=== PATIENT | female | born 2000 | race Caucasian/White ===

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

== ENCOUNTER 2023-07-26 07:09 | Emergency (ER) | payer OTHER, SELFPAY ==
[~2023-07-26] VITALS: Ht 170.2 cm; Wt 70.5 kg
[~2023-07-26 07:09] MED LIST changes: -ACETAMINOPH W/CODEINE #3 TAB UD PO PRN; -ACETAMINOPHEN/CODEINE 12.5 ML UDC As Ordered ONE; -ACETAMINOPHEN/CODEINE 12.5 ML UDC PO PRN; -BUPIVACAINE/EPIN 0.5% 30 ML VIAL As Ordered ONE; -EMLA CREAM 5GM (LIDOCAINE/PRILOCAINE) As Ordered ONE; -EMLA CREAM 5GM (LIDOCAINE/PRILOCAINE) TOP PRN; -LIDOCAINE 1% MDV 20ML VIAL SQ ONE; -LIDOCAINE 2% INJ 100 MG/5 ML SDV (FOR ANES.) As Ordered ONE; -LIDOCAINE W/EPINEPHRINE 1% 20ML VIAL As Ordered ONE; -LR 1,000 ML IV ONE; -LR 1,000 ML IV SCH; -MEPERIDINE INJ 25 MG/ML VIAL (J2175) IV PRN; -MIDAZOLAM INJ 2 MG/2 ML VIAL (J2250) As Ordered ONE; -MORPHINE 10 MG/ML 1ML VIAL IV PRN; -ONDANSETRON 4MG/2ML VIAL (J2405) As Ordered ONE; -ONDANSETRON 4MG/2ML VIAL (J2405) IV PRN; -PROPOFOL 200 MG/20 ML VIAL As Ordered ONE; -SUCCINYLCHOLINE 100 MG/5 ML SYRINGE (J0330) As Ordered ONE; -dexameTHASONE 4 MG/ML 1ML VIAL (J1100) As Ordered ONE; -fentaNYL 100 MCG/2 ML INJECTION (J3010) As Ordered ONE; -fentaNYL 100 MCG/2 ML INJECTION (J3010) IV PRN
[2023-07-26] MEDS ORDERED: HOME MED LIST COMPLETE! XX SCH (10:30)
[2023-07-26 12:55] VITALS: BP 131/69; TEMP 98.4; O2SAT 100
== END 2023-07-26 12:53 | disposition home or self-care (01) ==
LOC: M ED 07:09
DX: F41.9 Anxiety disorder, unspecified (principal); F44.4 Conversion disorder with motor symptom or deficit; F32.A Depression, unspecified